=== PATIENT | male | born 1960 | race Caucasian/White ===

== ENCOUNTER 2016-08-04 10:48 | Emergency (ER) | payer SELFPAY ==
[~2016-08-04] VITALS: Ht 167.6 cm; Wt 71.0 kg
[2016-08-04] MEDS ORDERED: LIDOCAINE HCL 1% 20ML VIAL (Pyxis) INJ INFIL ONE (12:00)
[2016-08-04] MEDS ORDERED: TETANUS, DIPHTHERIA, PERTUSSIS VAC/PF 0.5ML (>7YR OLD) IM ONE (12:15)
[2016-08-04 13:35] VITALS: BP 149/89
[2016-08-04] MEDS ORDERED: LORAZEPAM 2MG/ML CPJ IV ONE (20:00)
== END 2016-08-04 14:35 | disposition home or self-care (01) ==
LOC: ER 10:49
DX: S01.81XA Laceration without foreign body of other part of head, initial encounter (principal); I10 Essential (primary) hypertension; W11.XXXA Fall on and from ladder, initial encounter; Y93.89 Activity, other specified; Y92.89 Other specified places as the place of occurrence of the external cause; Y99.8 Other external cause status
CPT/HCPCS: 12013; 70450; 72125; 90471; 90715; 99284; A4217; J3490; X7700; Z7610